=== PATIENT | male | born 1975 | race African-American/Black ===

== ENCOUNTER 2018-01-22 00:04 | Emergency (ER) | payer MEDICAID, MEDICARE ==
[~2018-01-22] VITALS: Ht 167.6 cm; Wt 88.0 kg
[~2018-01-22 00:04] MED LIST: FOLI-43 PO; HYDROXYCHLOROQUINE PO; INSU3INS6 SQ
[2018-01-22] MEDS ORDERED: SODIUM CHLORIDE 0.9% 1,000 ML IV ONE (00:19)
[2018-01-22] MEDS ORDERED: LORAZEPAM 2MG/ML CPJ IV ONE (00:30)
[2018-01-22] MEDS ORDERED: ONDANSETRON HCL 4MG/2ML INJ IV ONE (00:45)
[2018-01-22 01:07] LABS: BASOPHILS % 0.4 % (0.0-2.0); EOSINOPHILS % 0.8 % (0.0-5.0); HEMATOCRIT. 42.7 % (42.0-52.0); HEMOGLOBIN. 14.5 g/dL (14.0-18.0); LYMPHOCYTES % 17.8 % (20.0-50.0); MEAN CORPUSCULAR HEMOGLOBIN 30.1 pg (28.0-32.0); MEAN CORPUSCULAR VOLUME 88.8 fL (80.0-94.0); MEAN PLATELET VOLUME 9.1 fl (7.4-10.4); MONOCYTES % 9.2 % (2.0-8.0); NEUTROPHILS % 71.8 % (40.0-76.0); PLATELET 234 x1000/uL (130-400); RED BLOOD CELL COUNT 4.81 mill/uL (4.7-6.1); RED CELL DISTRIBUTION WIDTH 12.7 % (11.6-14.6)
[2018-01-22 01:09] LABS: CHLORIDE 100 mEq/L (98-107)
[2018-01-22 01:15] LABS: ETHANOL BLOOD < 10 mg/dL
[2018-01-22] MEDS ORDERED: SODIUM CHLORIDE 0.9% 500 ML IV ONE (02:00)
[2018-01-22 02:43] VITALS: BP 132/72
[2018-01-22 05:07] LABS: *BARBITURATES SCREEN URINE NEGATIVE (NEGATIVE); CANNABINOID URINE SCREEN PRESUMTIVE POSITIVE (NEGATIVE); METHADONE URINE SCREEN NEGATIVE (NEGATIVE); OPIATES URINE SCREEN NEGATIVE (NEGATIVE); PHENCYCLIDINE URINE SCREEN NEGATIVE (NEGATIVE)
[2018-01-22 05:08] LABS: *AMPHETAMINES SCREEN URINE NEGATIVE (NEGATIVE); *BENZODIAZEPINES SCREEN URINE NEGATIVE (NEGATIVE); *COCAINE SCREEN URINE NEGATIVE (NEGATIVE)
== END 2018-01-22 02:45 | disposition home or self-care (01) ==
LOC: ER 00:04
DX: F12.129 Cannabis abuse with intoxication, unspecified (principal); E11.65 Type 2 diabetes mellitus with hyperglycemia; M32.9 Systemic lupus erythematosus, unspecified; Z79.4 Long term (current) use of insulin; Z87.798 Personal history of other (corrected) congenital malformations; Z98.890 Other specified postprocedural states; Z79.899 Other long term (current) drug therapy
CPT/HCPCS: 36415; 80053; 80305; 85025; 93005; 96361; 96374; 96375; 99285; G0482; J2060; J2405; J7030; J7040

== ENCOUNTER 2020-09-15 06:35 | Emergency (ER) | payer MEDICARE, OTHER ==
[~2020-09-15] VITALS: Ht 172.7 cm; Wt 73.0 kg
[2020-09-15] MEDS ORDERED: ONDANSETRON 4MG ODT PO ONE (07:15)
[2020-09-15] MEDS ORDERED: HYDROCODONE/ACETAMINOPHEN 5/325MG TABLET PO ONE (07:15)
[2020-09-15 07:34] VITALS: BP 220/90
[2020-09-15] MEDS ORDERED: METH-773 MT (08:56)
[2020-09-15] MEDS ORDERED: IBUP-2029 MT (08:56)
[2020-09-15] MEDS ORDERED: TRAM50TA3 MT (08:56)
== END 2020-09-15 10:02 | disposition home or self-care (01) ==
LOC: ER 06:35
DX: S09.8XXA Other specified injuries of head, initial encounter (principal); M54.2 Cervicalgia; M54.5 Low back pain; M54.6 Pain in thoracic spine; M25.512 Pain in left shoulder; M25.511 Pain in right shoulder; G89.11 Acute pain due to trauma; E11.9 Type 2 diabetes mellitus without complications; V49.49XA Driver injured in collision with other motor vehicles in traffic accident, initial encounter; Y93.89 Activity, other specified; Y92.488 Other paved roadways as the place of occurrence of the external cause
CPT/HCPCS: 70450; 71045; 72125; 72128; 72131; 99285; Q0162